=== PATIENT | female | born 1995 | race American Indian/Alaskan Native ===

== ENCOUNTER 2020-06-22 18:20 | Emergency (ER) | payer SELFPAY ==
[2020-06-22 20:18] VITALS: BP 111/75
--- NOTE | 2020-06-22 20:32 | Emergency Department Report ---
Chief Complaint: Upper Respiratory Infection Stated Complaint: SORE THROAT, RUNNY NOSE, FEELING SICK Time Seen by Provider: 06/22/20 20:26 - HPI History of Present Illness: Patient is a 24-year-old female presents emergency room complaints of URI symptoms that began 4 days ago. She states that her symptoms have been improving. She states that last week she went to [place] with her family. She states that her sister came home with similar symptoms and then she got the symptoms. She states that she has associated dry itchy throat, rhinorrhea, nasal congestion. She denies any fever, vomiting, diarrhea, cough, shortness of breath, chest pain, abdominal pain, pelvic pain, urinary symptoms. No past medical history. No allergies to medications. Patient was also inquiring about HIV testing. Vitals are normal On exam: Non toxic appearing, no acute distress atraumatic, normocephalic normal appearance of the eyes, PERRL, EOMI, no periorbital edema or ecchymosis moist mucus membranes, normal oropharynx, normal TMs and canals regular heart rate and rhythm, no gallops, no rubs, no murmurs breath sounds are clear bilaterally, no w/r/r A&O x4, no focal neuro deficit skin is warm, dry, intact Patient is presenting with viral-like symptoms She has no abnormality on physical exam as documented in chart She has no signs of pharyngitis, tonsillitis, pneumonia, bacterial bronchitis, dehydration Her vitals are normal Discussed supportive care and symptomatic treatment with patient She will be referred to a clinic in the health department or to receive HIV testing Patient is well-appearing and states that her symptoms are already feeling better Advised patient Please increase your fluid intake. You may gargle with warm salt water. May take Tylenol as needed. May use Mucinex or TheraFlu [id number]. Follow-up with your primary care doctor. Follow-up with the clinic or the health department in regards to HIV testing. Return to emergency room for new or worsening symptoms. medical screening examination performed and there is no threat to life or limb at this time - Exam Vital Signs: Vital Signs 06/22/20 20:17 Temperature 98.3 F Pulse Rate 67 Respiratory 16 Rate Blood Pressure 111/75 [Right] O2 Sat by Pulse 100 Oximetry MSE screening note: Focused history and physical exam performed. ED Disposition for MSE Clinical Impression: Viral illness Disposition: Z-07 MED SCREENING EXAM-LEFT Is pt being admited?: No Does the pt Need Aspirin: No Condition: Stable Instructions: Viral Respiratory Infection Additional Instructions: Please increase your fluid intake. You may gargle with warm salt water. May take Tylenol as needed. May use Mucinex or TheraFlu [id number]. Follow- up with your primary care doctor. Follow-up with the clinic or the health department in regards to HIV testing. Return to emergency room for new or worsening symptoms. walk in clinic: [facility] in [place], [place] Address: [address] [place] [id number] Referrals: LITA ARRINGTON MD [Staff Physician] - 2-3 Days [facility] [Provider Group] - 2-3 Days [facility] [Outside] - 2-3 Days Time of Disposition: 20:38 Print Language: MONGOLIAN
== END 2020-06-22 21:30 | disposition left against medical advice (07) ==
LOC: ED 18:20
DX: B34.9 Viral infection, unspecified (principal); Z53.21 Procedure and treatment not carried out due to patient leaving prior to being seen by health care provider